=== PATIENT | male | born 1950 | race Caucasian/White ===

== ENCOUNTER 2020-01-15 10:50 | Inpatient (IN) ==
[~2020-01-15 10:50] MED LIST: ZEMURON 50 MG VIAL ONE
[2020-01-15] MEDS ORDERED: NS 1000 ML 1,000 ML ONE (11:17)
[2020-01-15] MEDS ORDERED: ASCORBIC ACID INJ MULTI-DOSE VIAL IM SCH (11:30)
[2020-01-15 11:56] LABS: ABG BASE EXCESS -0.4 mmol/L (-2.0-2.0); ABG HCO3 22.3 mmol/L (22-26)
--- NOTE | 2020-01-15 12:22 | RAD ---
HISTORYShortness of breath. Positive COVID.STUDYCHEST, 1 VIEWCOMPARISONNoneFINDINGSThe trachea is midline. The cardiac silhouette is enlarged. There is prominence of pulmonary interstitial markings in both lungs. There may be a slight lower lobe and peripheral predominance. There is no evidence of consolidation, significant effusion or pneumothorax. The bony thorax is unremarkable.IMPRESSION1. Prominence of pulmonary interstitial markings in both lungs as described.2. Cardiomegaly.Electronically signed by: DG NICHOLAS (Jan 15, 2020 12:21:08)
[2020-01-15 12:24] LABS: BASOPHILS # (AUTO) 0.3 X10^3/uL (0.0-0.1); BASOPHILS % (AUTO) 4.6 % (0.2-1.0); EOSINOPHILS % (AUTO) 0.1 % (0.9-2.9); HEMOGLOBIN 16.6 g/dL (13.5-18.0); LYMPHOCYTES # (AUTO) 0.5 X10^3/uL (1.3-2.9); LYMPHOCYTES % (AUTO) 8.5 % (21.0-51.0); MEAN CORPUSCULAR HEMOGLOBIN 31.5 pg (27.0-34.0); MEAN CORPUSCULAR HGB CONC 35.4 g/dL (33.0-35.0); MEAN CORPUSCULAR VOLUME 89.2 fL (80.0-100.0); MEAN PLATELET VOLUME 7.8 fL (7.4-11.0); MONOCYTES # (AUTO) 0.3 x10^3/uL (0.3-0.8); MONOCYTES % (AUTO) 4.4 % (0.0-13.0); NEUTROPHILS # (AUTO) 4.9 x10^3/uL (2.2-4.8); NEUTROPHILS % (AUTO) 82.4 % (42.0-75.0); PLATELET COUNT 172 X10^3/uL (150.0-450.0); RED BLOOD COUNT 5.27 X10^6/uL (4.7-6.0); RED CELL DISTRIBUTION WIDTH 13.7 % (11.6-16.5); WHITE BLOOD COUNT 5.9 X10^3/uL (3.6-10.0)
[2020-01-15 12:36] LABS: ALBUMIN 2.6 g/dL (3.4-5.0); CALCIUM 8.7 mg/dL (8.5-10.1); CARBON DIOXIDE 24.4 mmol/L (21-32); COR CA(FOR HYPOALB) 9.8 mg/dL (8.5-10.1); CREATININE 1.48 mg/dL (0.70-1.30)
[2020-01-15] MEDS ORDERED: K-RIDER 10 MEQ/NS 100 ML 10 MEQ/100 ML BAG IV PRN (12:49)
[2020-01-15] MEDS ORDERED: POTASSIUM CHL 40 MEQ/NS 0.45% 500 ML IV PRN (12:49)
[2020-01-15] MEDS ORDERED: MICRO K EXTEN CAP 10 MEQ PO PRN (12:49)
[2020-01-15] MEDS ORDERED: KLOR-CON PO PRN (12:49)
[2020-01-15] MEDS ORDERED: POTASSIUM CHL 60 MEQ/NS 0.45% 500 ML IV PRN (12:49)
[2020-01-15] MEDS ORDERED: POTASSIUM CHLORIDE LIQ 20 MEQ UDC PO PRN (12:49)
[2020-01-15] MEDS ORDERED: NORCO 5/325 MG TAB ONE (13:42)
[2020-01-15] MEDS ORDERED: CORTEF ONE ×3 (13:48→19:23)
[2020-01-15 13:53] VITALS: BMI 28.8
[2020-01-15] MEDS: THIAMINE HCL INJ IM SCH ×2 (13:54→21:07)
[2020-01-15] MEDS: NS 1000 ML 1,000 ML IV SCH (13:54)
[2020-01-15] MEDS: K-DUR TAB 20 MEQ PO PRN (13:55)
[2020-01-15] MEDS: CORTEF PO SCH ×3 (13:56→21:06)
[2020-01-15] MEDS: PLAQUENIL PO SCH ×2 (13:56→21:08)
[2020-01-15] MEDS: VITAMIN D (1.25MG) PO SCH (13:57)
[2020-01-15] MEDS: ZINC SULFATE PO SCH ×2 (13:57→21:07)
[2020-01-15] MEDS: VITAMIN A PO SCH ×3 (13:58→21:06)
[2020-01-15] MEDS: NS 100 ML IV 100 ML with ASCORBIC ACID INJ MULTI-DOSE VIAL 1,500 MG IV SCH ×6 (13:59→21:06)
[2020-01-15] MEDS: NORCO 5/325 MG TAB PO PRN (14:00)
[2020-01-15] MEDS ORDERED: MAGNESIUM SULFATE 1 GRAM/100 mL PREMIX 1 GM/100 ML BAG IV PRN (15:03)
[2020-01-15] MEDS: LOVENOX INJ 40 MG SYR SC SCH (17:15)
[2020-01-15] MEDS ORDERED: NS 500 ML IV 500 ML IV ONE (21:25)
[2020-01-16] MEDS: VITAMIN A PO SCH ×4 (04:00→22:46)
[2020-01-16] MEDS: NS 100 ML IV 100 ML with ASCORBIC ACID INJ MULTI-DOSE VIAL 1,500 MG IV SCH ×8 (04:00→20:07)
[2020-01-16] MEDS: PLAQUENIL PO SCH ×3 (05:30→22:47)
[2020-01-16 05:31] LABS: ALANINE AMINOTRANSFERASE 53 Units/L (12-78); ALBUMIN 2.5 g/dL (3.4-5.0); ALKALINE PHOSPHATASE 73 Units/L (46-116); ASPARTATE AMINO TRANSFERASE 94 Units/L (15-37); BLOOD UREA NITROGEN 42 mg/dL (7-18); CALCIUM 8.7 mg/dL (8.5-10.1); CARBON DIOXIDE 23.1 mmol/L (21-32); CHLORIDE 101 mmol/L (98-107); COR CA(FOR HYPOALB) 9.9 mg/dL (8.5-10.1); COR NA(FOR HYPERGLY) 137 mmol/L (136-145); CREATININE 1.18 mg/dL (0.70-1.30); SODIUM 136 mmol/L (136-145); eGFR NON BLACK RACES > 60 (>60)
[2020-01-16 05:42] LABS: BASOPHILS # (AUTO) 0.1 X10^3/uL (0.0-0.1); BASOPHILS % (AUTO) 1.1 % (0.2-1.0); EOSINOPHILS % (AUTO) 0.1 % (0.9-2.9); HEMATOCRIT 48.4 % (42.0-54.0); LYMPHOCYTES # (AUTO) 1.3 X10^3/uL (1.3-2.9); MEAN CORPUSCULAR HEMOGLOBIN 31.8 pg (27.0-34.0); MEAN CORPUSCULAR HGB CONC 35.2 g/dL (33.0-35.0); MEAN CORPUSCULAR VOLUME 90.4 fL (80.0-100.0); MEAN PLATELET VOLUME 8.7 fL (7.4-11.0); MONOCYTES # (AUTO) 0.6 x10^3/uL (0.3-0.8); MONOCYTES % (AUTO) 6.3 % (0.0-13.0); NEUTROPHILS # (AUTO) 6.8 x10^3/uL (2.2-4.8); NEUTROPHILS % (AUTO) 77.5 % (42.0-75.0); PLATELET COUNT 163 X10^3/uL (150.0-450.0); RED BLOOD COUNT 5.35 X10^6/uL (4.7-6.0); RED CELL DISTRIBUTION WIDTH 14.2 % (11.6-16.5); WHITE BLOOD COUNT 8.8 X10^3/uL (3.6-10.0)
[2020-01-16] MEDS: NORCO 5/325 MG TAB PO PRN ×2 (05:45→11:16)
[2020-01-16 06:03] LABS: PLATELET MORPHOLOGY COMMENT NORMAL (NORMAL)
[2020-01-16] MEDS ORDERED: CORTEF ONE ×3 (08:20→20:05)
[2020-01-16] MEDS: CORTEF PO SCH ×4 (08:25→20:09)
[2020-01-16] MEDS: LOVENOX INJ 40 MG SYR SC SCH (08:25)
[2020-01-16] MEDS: THIAMINE HCL INJ IM SCH ×2 (08:26→20:11)
[2020-01-16] MEDS: VITAMIN D (1.25MG) PO SCH (08:27)
[2020-01-16] MEDS: ZINC SULFATE PO SCH ×2 (08:28→20:10)
[2020-01-16] MEDS ORDERED: BISOPROLOL HYDROCHLOROTHIAZIDE PO SCH (10:15)
[2020-01-16] MEDS ORDERED: ZESTRIL TAB 20 MG ONE (10:44)
[2020-01-16] MEDS ORDERED: ZEBETA TAB 5 MG PO SCH (11:00)
[2020-01-16] MEDS ORDERED: ZESTRIL TAB 20 MG PO SCH (11:00)
[2020-01-16] MEDS ORDERED: ZIAC 5/6.25 MG PO SCH (11:00)
[2020-01-16] MEDS: ARIMIDEX PO SCH (11:10)
[2020-01-16] MEDS: ACTOS PO SCH (11:13)
[2020-01-16] MEDS: GLUCOPHAGE XR 24-HR PO SCH ×2 (11:15→20:09)
[2020-01-16] MEDS: NS 1000 ML 1,000 ML IV SCH ×2 (11:16→16:43)
[2020-01-16] MEDS: K-DUR TAB 20 MEQ PO PRN (11:18)
[2020-01-16 12:05] LABS: ABG BASE EXCESS -0.6 mmol/L (-2.0-2.0); ABG HCO3 23.1 mmol/L (22-26)
[2020-01-16] MEDS ORDERED: DIPRIVAN PREMIX 1 GRAM IV 1,000 MG/100 ML VIAL ONE (12:09)
[2020-01-16 12:55] LABS: BILIRUBIN,URINE NEGATIVE (NEGATIVE); BLOOD/HEMOGLOBIN,URINE 3+ (NEGATIVE); GLUCOSE, URINE NEGATIVE (NEGATIVE); KETONES,URINE 1+ (NEGATIVE); LEUKOCYTE ESTERASE ,URINE NEGATIVE (NEGATIVE); NITRITES,URINE NEGATIVE (NEGATIVE); PROTEIN,URINE 4+ (NEGATIVE); UROBILINOGEN,URINE NORMAL (NORMAL)
[2020-01-16 13:01] LABS: APPEARANCE,URINE HAZY (CLEAR); BACTERIA,URINE TRACE /HPF (NEGATIVE); COLOR,URINE YELLOW (YELLOW); MUCUS,URINE FEW /HPF (NEGATIVE); SQUAMOUS EPITHELIAL CELL,UR RARE /HPF (NEGATIVE)
--- NOTE | 2020-01-16 13:22 | DR.UPDATE ---
H&P Update History and Physical Update: History and Physical reviewed and patient examined. Changes noted: NO Yes with the following:h&p reviewed. will intubate for covid 19 H&P Reviewed: Yes Patient was examined?: Yes Procedures (ALL) - Central Line Placement PCM.CLCO: written consent Time out performed: Yes Patient placed pm monitor/pulse ox: Yes MD prep: mask, gown, gloves, other Centrial line prep: chlorhexidine scrub Local anesthsia used: lidocane 1% Ultrasound used for placement: Yes (right ij easily id'd) Central line lumen ininserted: triple Post procedure: sutured in place, good blood return, all ports aspirated, flushed,capped, sterile dressing applied Post procedure xray: tip oc catheter in good position, no pneumothorax seen Patient tolerated procedure: Yes Complications: none - Intubation Time out performed: Yes Sedative: other (propofol 170mg) paralytic: succinylchline (120mg) Laryngoscope: fiber optic video scope (glidescope 3. ) ET tube size: 8 Tube secured depth: 22 teeth Tube secured location: teeth Tube placement confirmation: visualized tube passing through cords, equal breath sounds bilaterally, no breath sounds over epigastrium, comfirmation by capnometer Patient tolerated procedure: Yes Intubation complications: none
--- NOTE | 2020-01-16 13:55 | RAD ---
HISTORYET TUBE PLACEMENT, CENTRAL LINE PLACEMENT + COVID-19STUDYCHEST, 1 VIEWCOMPARISONChest x-ray dated January 15, 2020.FINDINGSRight IJ central venous catheter whose tip overlies the cavoatrial junction. There is an endotracheal tube whose tip is at the thoracic inlet. The cardiac silhouette is stably enlarged without overt signs of failure. Chronic emphysematous and interstitial lung changes. Diffuse patchy bilateral airspace disease. No significant pleural effusion or pneumothorax. The bony thorax is unremarkable.IMPRESSION1. Tubes and lines as above.2. Worsening lung aeration.Electronically signed by: AMENA ZUNIGA (Jan 16, 2020 13:54:13)
[2020-01-16] MEDS: DIPRIVAN PREMIX 1 GRAM IV 1,000 MG/100 ML VIAL IV PRN ×2 (13:57→16:41)
[2020-01-16 14:37] LABS: ABG BASE EXCESS -1.5 mmol/L (-2.0-2.0); ABG HCO3 23.7 mmol/L (22-26)
[2020-01-16] MEDS ORDERED: LEVOPHED INJ 8 MG in D5W 250 ML IV 242 ML IV PRN (15:10)
--- NOTE | 2020-01-16 16:05 | RAD ---
HISTORYNG TUBE PLACEMENT; PT IN PRONE POSITIONSTUDYKUBCOMPARISONNoneFINDINGSNasogastric tube tip and side hole are within the region of the fundus of the stomach. Patient is in prone position.IMPRESSIONNasogastric tube tip and side hole are within the region of the fundus of the stomach.Electronically signed by: Puma Stewart (Jan 15 16:04:06)
[2020-01-16] MEDS: LACRI-LUBE S.O.P. AFFEYE SCH ×2 (16:23→20:09)
[2020-01-16 18:02] LABS: ABG BASE EXCESS -0.4 mmol/L (-2.0-2.0); ABG HCO3 24.8 mmol/L (22-26)
[2020-01-16 18:03] LABS: ABG ALLEN TEST POS
[2020-01-16] MEDS: FLOMAX PO SCH (20:09)
[2020-01-16] MEDS: SINGULAIR TAB 10 MG PO SCH (20:11)
[2020-01-16] MEDS: VERSED 100 MG in NS 100 ML IV 80 ML IV PRN (20:45)
[2020-01-17] MEDS: NS 100 ML IV 100 ML with ASCORBIC ACID INJ MULTI-DOSE VIAL 1,500 MG IV SCH ×8 (02:30→20:17)
[2020-01-17] MEDS ORDERED: NORCURON INJ 10 MG VIAL 50 MG in NS 50 ML IV 50 ML IV PRN (02:47)
[2020-01-17] MEDS ORDERED: NORCURON INJ 10 MG VIAL IVP ONE (02:47)
[2020-01-17] MEDS ORDERED: NORCURON INJ 10 MG VIAL ONE (03:15)
[2020-01-17] MEDS ORDERED: NS 50 ML IV 50 ML IV ONE (03:18)
[2020-01-17] MEDS: VITAMIN A PO SCH ×2 (04:14→14:39)
[2020-01-17] MEDS ORDERED: VERSED ONE ×2 (04:54→04:57)
[2020-01-17] MEDS ORDERED: NS 100 ML IV 100 ML IV ONE (04:55)
[2020-01-17 04:58] LABS: BASOPHILS % (AUTO) 0.3 % (0.2-1.0); EOSINOPHILS % (AUTO) 0.3 % (0.9-2.9); HEMATOCRIT 45.5 % (42.0-54.0); HEMOGLOBIN 15.6 g/dL (13.5-18.0); LYMPHOCYTES # (AUTO) 0.9 X10^3/uL (1.3-2.9); MEAN CORPUSCULAR HEMOGLOBIN 31.4 pg (27.0-34.0); MEAN CORPUSCULAR HGB CONC 34.3 g/dL (33.0-35.0); MEAN CORPUSCULAR VOLUME 91.5 fL (80.0-100.0); MONOCYTES # (AUTO) 0.4 x10^3/uL (0.3-0.8); MONOCYTES % (AUTO) 4.3 % (0.0-13.0); NEUTROPHILS # (AUTO) 7.5 x10^3/uL (2.2-4.8); NEUTROPHILS % (AUTO) 85.1 % (42.0-75.0); PLATELET COUNT 237 X10^3/uL (150.0-450.0); RED BLOOD COUNT 4.98 X10^6/uL (4.7-6.0); RED CELL DISTRIBUTION WIDTH 14.1 % (11.6-16.5); WHITE BLOOD COUNT 8.9 X10^3/uL (3.6-10.0)
[2020-01-17] MEDS: VERSED 100 MG in NS 100 ML IV 80 ML IV PRN ×2 (05:05→19:24)
[2020-01-17 05:07] LABS: ALANINE AMINOTRANSFERASE 50 Units/L (12-78); ALBUMIN 2.3 g/dL (3.4-5.0); ALKALINE PHOSPHATASE 81 Units/L (46-116); ASPARTATE AMINO TRANSFERASE 71 Units/L (15-37); BLOOD UREA NITROGEN 32 mg/dL (7-18); CALCIUM 8.2 mg/dL (8.5-10.1); CHLORIDE 102 mmol/L (98-107); COR CA(FOR HYPOALB) 9.6 mg/dL (8.5-10.1); COR NA(FOR HYPERGLY) 141 mmol/L (136-145); CREATININE 0.95 mg/dL (0.70-1.30); SODIUM 140 mmol/L (136-145); eGFR NON BLACK RACES > 60 (>60)
[2020-01-17] MEDS: PLAQUENIL PO SCH ×3 (05:22→21:51)
[2020-01-17 06:13] LABS: ABG BASE EXCESS 1.4 mmol/L (-2.0-2.0)
[2020-01-17 06:14] LABS: ABG ALLEN TEST POS; ABG HCO3 30.3 mmol/L (22-26); FRACTIONATED INSPIRED OXYGEN 80
[2020-01-17] MEDS ORDERED: PHARMACY CONSULT - TOBRAMYCIN XX SCH (07:00)
[2020-01-17] MEDS ORDERED: TOBRAMYCIN SULFATE 80 MG in NS 100 ML IV 100 ML IV ONE (08:00)
[2020-01-17] MEDS ORDERED: ZITHROMAX INJ 500 MG VIAL 500 MG in NS 250 ML IV 250 ML IV SCH (09:00)
[2020-01-17] MEDS: LACRI-LUBE S.O.P. AFFEYE SCH ×2 (09:01→20:17)
[2020-01-17] MEDS: ACTOS PO SCH (09:02)
[2020-01-17] MEDS: LOVENOX INJ 40 MG SYR SC SCH (09:03)
[2020-01-17] MEDS: ZINC SULFATE PO SCH ×2 (09:03→20:15)
[2020-01-17] MEDS: VSL#3 PO SCH (09:03)
[2020-01-17] MEDS: GLUCOPHAGE XR 24-HR PO SCH ×2 (09:10→20:41)
[2020-01-17] MEDS ORDERED: CORTEF ONE ×4 (09:15→20:16)
[2020-01-17] MEDS ORDERED: LOPRESSOR INJ 5 MG AMP IVP PRN (09:35)
[2020-01-17] MEDS: ARIMIDEX PO SCH (10:10)
[2020-01-17] MEDS: THIAMINE HCL INJ IM SCH ×2 (10:10→20:42)
[2020-01-17] MEDS: ROCEPHIN 1 GRAM IV PREMIX 1 G/50 ML IV.SOLN. IV SCH (10:10)
[2020-01-17] MEDS: CORTEF PO SCH ×4 (10:11→20:41)
[2020-01-17] MEDS: ZEMURON IV SCH (11:12)
[2020-01-17] MEDS: NS IV SCH (11:12)
[2020-01-17] MEDS ORDERED: NS IV SCH (12:00)
[2020-01-17] MEDS ORDERED: SPIKE MINIBAG IV SCH (12:00)
[2020-01-17] MEDS ORDERED: AZACTAM IV SCH (12:00)
[2020-01-17] MEDS: NS 1000 ML 1,000 ML IV SCH (14:37)
[2020-01-17] MEDS: VITAMIN D3 25 mcg (1,000 UNITS) PO SCH (15:01)
[2020-01-17] MEDS: TOBRAMYCIN SULFATE 80 MG in NS 100 ML IV 98 ML IV SCH ×2 (17:09→21:51)
[2020-01-17] MEDS ORDERED: PHARMACY COMMENT IV NR (20:00)
[2020-01-17] MEDS: SINGULAIR TAB 10 MG PO SCH (20:15)
[2020-01-17] MEDS: FLOMAX PO SCH (20:15)
[2020-01-17 20:48] LABS: BLOOD UREA NITROGEN 26 mg/dL (7-18); CALCIUM 8.1 mg/dL (8.5-10.1); CARBON DIOXIDE 32.4 mmol/L (21-32); CHLORIDE 105 mmol/L (98-107); COR NA(FOR HYPERGLY) 144 mmol/L (136-145); SODIUM 142 mmol/L (136-145); eGFR NON BLACK RACES > 60 (>60)
[2020-01-18] MEDS: NS IV SCH ×2 (01:29→17:30)
[2020-01-18] MEDS: ZEMURON IV SCH ×2 (01:29→17:30)
[2020-01-18] MEDS: NS 100 ML IV 100 ML with ASCORBIC ACID INJ MULTI-DOSE VIAL 1,500 MG IV SCH ×6 (02:55→16:00)
[2020-01-18 04:55] LABS: ABG BASE EXCESS 6.3 mmol/L (-2.0-2.0)
[2020-01-18 04:56] LABS: ABG HCO3 34.7 mmol/L (22-26); FRACTIONATED INSPIRED OXYGEN 55
[2020-01-18 04:57] LABS: ABG ALLEN TEST POS
[2020-01-18] MEDS ORDERED: PHARMACY COMMENT IV NR (05:00)
[2020-01-18] MEDS: PLAQUENIL PO SCH ×3 (05:30→22:00)
--- NOTE | 2020-01-18 05:46 | RAD ---
STUDY: CHEST, 1 VIEWCOMPARISON: 01/16/2020HISTORY: ARDSFINDINGS:Tip of endotracheal tube is 55 mm above the andrea. Right IJ central line and enteric tube are stable. Cardiomediastinal contour is stable. Diffuse alveolar airspace disease in the right and left lung is unchanged from the prior study compatible with patient ARDS. No pleural effusion or gross pneumothorax is seen.IMPRESSION:There is no significant change from prior studyElectronically signed by: Benjy Merrill (Jan 18, 2020 05:45:43)
[2020-01-18 06:02] LABS: BASOPHILS % (AUTO) 0.2 % (0.2-1.0); HEMATOCRIT 42.2 % (42.0-54.0); HEMOGLOBIN 14.5 g/dL (13.5-18.0); LYMPHOCYTES # (AUTO) 0.4 X10^3/uL (1.3-2.9); MEAN CORPUSCULAR HEMOGLOBIN 31.8 pg (27.0-34.0); MEAN CORPUSCULAR HGB CONC 34.4 g/dL (33.0-35.0); MEAN CORPUSCULAR VOLUME 92.4 fL (80.0-100.0); MEAN PLATELET VOLUME 7.1 fL (7.4-11.0); MONOCYTES # (AUTO) 0.4 x10^3/uL (0.3-0.8); NEUTROPHILS # (AUTO) 7.8 x10^3/uL (2.2-4.8); NEUTROPHILS % (AUTO) 89.8 % (42.0-75.0); PLATELET COUNT 242 X10^3/uL (150.0-450.0); RED BLOOD COUNT 4.57 X10^6/uL (4.7-6.0); RED CELL DISTRIBUTION WIDTH 14.2 % (11.6-16.5); WHITE BLOOD COUNT 8.7 X10^3/uL (3.6-10.0)
[2020-01-18 06:14] LABS: ALANINE AMINOTRANSFERASE 33 Units/L (12-78); ALBUMIN 1.8 g/dL (3.4-5.0); ALKALINE PHOSPHATASE 66 Units/L (46-116); ASPARTATE AMINO TRANSFERASE 37 Units/L (15-37); BLOOD UREA NITROGEN 26 mg/dL (7-18); CALCIUM 8.2 mg/dL (8.5-10.1); CARBON DIOXIDE 32.6 mmol/L (21-32); CHLORIDE 106 mmol/L (98-107); COR NA(FOR HYPERGLY) 144 mmol/L (136-145); SODIUM 143 mmol/L (136-145); TOTAL PROTEIN 6.5 g/dL (6.4-8.2); eGFR NON BLACK RACES > 60 (>60)
[2020-01-18] MEDS: TOBRAMYCIN SULFATE 80 MG in NS 100 ML IV 98 ML IV SCH ×3 (06:16→22:00)
[2020-01-18] MEDS: VERSED 100 MG in NS 100 ML IV 80 ML IV PRN ×2 (07:30→17:30)
[2020-01-18] MEDS: ROCEPHIN 1 GRAM IV PREMIX 1 G/50 ML IV.SOLN. IV SCH (09:00)
[2020-01-18] MEDS: ZINC SULFATE PO SCH ×2 (10:00→21:00)
[2020-01-18] MEDS: VSL#3 PO SCH (10:00)
[2020-01-18] MEDS: LACRI-LUBE S.O.P. AFFEYE SCH ×2 (10:00→21:00)
[2020-01-18] MEDS: LOVENOX INJ 40 MG SYR SC SCH (10:00)
[2020-01-18] MEDS: VITAMIN D3 25 mcg (1,000 UNITS) PO SCH (10:00)
[2020-01-18] MEDS: ARIMIDEX PO SCH (10:00)
[2020-01-18] MEDS: VITAMIN A PO SCH (10:00)
[2020-01-18] MEDS: ACTOS PO SCH (10:00)
[2020-01-18] MEDS: GLUCOPHAGE XR 24-HR PO SCH ×2 (10:00→22:19)
[2020-01-18] MEDS: CORTEF PO SCH ×4 (10:00→21:00)
[2020-01-18] MEDS: THIAMINE HCL INJ IM SCH ×2 (10:00→21:00)
[2020-01-18] MEDS ORDERED: LOPRESSOR INJ 5 MG AMP IVP ONE ×4 (10:30→16:57)
[2020-01-18] MEDS: NS 1000 ML 1,000 ML IV SCH (12:02)
[2020-01-18] MEDS ORDERED: LOPRESSOR INJ 5 MG AMP IVP PRN (12:09)
[2020-01-18] MEDS ORDERED: NS 100 ML IV 100 ML IV ONE (16:05)
[2020-01-18] MEDS: FLOMAX PO SCH (21:00)
[2020-01-18] MEDS: SINGULAIR TAB 10 MG PO SCH (21:00)
--- NOTE | 2020-01-18 21:58 | DR.H&P ---
H&P History & Physical for Day of: H&P Date: 01/15/20 Chief Complaint Chief Complaint: Diagnosed with COVID-19 ON 01/09 after a few days of fever, and headache. Pt has had increasing dyspnea and has been admitted to the hospital for further treatment. Started on plaquenil 1-2 days before admission Allergies Allergies Allergy/AdvReac Type Severity Reaction Status Date / Time Penicillins Allergy Verified 01/15/20 11:30 History of Present Illness History of Present Illness: Pt has been sick for about a week, and has been worsening to the point of dyspnea at rest. Past Medical History Past Medical History: Hypertension Additional Medical History: Diabetes, BPH Past Surgical History Surgical History: Unknown Family History Family Medical History: Diabetes Mellitus, Cancer and [place] Social History Does patient currently use any type of tobacco product: No Have you used tobacco products in the last 12 months: No Alcohol Use: None Drug Use: None Medications Home Medications: Penicillins Allergy (Verified 01/15/20 11:30) CONTINUE taking the following medications anastrozole 1 mg PO DAILY 01/15/20 [History] aspirin [Aspirin Low Dose] 10 mg PO DAILY 01/15/20 [History] bisoprolol-hydrochlorothiazide 1 tab PO DAILY 01/15/20 [History] fluticasone furoate-vilanterol [Breo Ellipta] 1 inh INHALATION DAILY 01/15/20 [History] hydroxychloroquine 200 mg PO DAILY 01/15/20 [History] lisinopril 20 mg PO DAILY 01/15/20 [History] metformin 500 mg PO BID 01/15/20 [History] montelukast 10 mg PO HS 01/15/20 [History] pantoprazole 40 mg PO DAILY 01/15/20 [History] pioglitazone 30 mg PO DAILY 01/15/20 [History] tamsulosin 0.4 mg PO HS 01/15/20 [History] Labs Result Diagrams: 01/18/20 05:16 01/18/20 05:16 Labs: 01/16/20 12:35 Urine,[place] Urine Culture - Final Laboratory WBC 8.7 X10^3/uL (3.6-10.0) 01/18/20 05:16 RBC 4.57 X10^6/uL (4.7-6.0) L 01/18/20 05:16 Hgb 14.5 g/dL (13.5-18.0) 01/18/20 05:16 Hct 42.2 % (42.0-54.0) 01/18/20 05:16 MCV 92.4 fL (80.0-100.0) 01/18/20 05:16 MCH 31.8 pg (27.0-34.0) 01/18/20 05:16 MCHC 34.4 g/dL (33.0-35.0) 01/18/20 05:16 RDW 14.2 % (11.6-16.5) 01/18/20 05:16 Plt Count 242 X10^3/uL (150.0-450.0) 01/18/20 05:16 Plt Count Comment Adequate (ADEQUATE) 01/16/20 04:59 MPV 7.1 fL (7.4-11.0) L 01/18/20 05:16 Neut % (Auto) 89.8 % (42.0-75.0) H 01/18/20 05:16 Lymph % (Auto) 5.0 % (21.0-51.0) L 01/18/20 05:16 Alfalfa % (Auto) 5.0 % (0.0-13.0) 01/18/20 05:16 Eos % (Auto) 0.0 % (0.9-2.9) L 01/18/20 05:16 Baso % (Auto) 0.2 % (0.2-1.0) 01/18/20 05:16 Neut # (Auto) 7.8 x10^3/uL (2.2-4.8) H 01/18/20 05:16 Lymph # (Auto) 0.4 X10^3/uL (1.3-2.9) L 01/18/20 05:16 Alfalfa # (Auto) 0.4 x10^3/uL (0.3-0.8) 01/18/20 05:16 Eos # (Auto) 0.0 x10^3/uL (0.0-0.2) 01/18/20 05:16 Baso # (Auto) 0.0 X10^3/uL (0.0-0.1) 01/18/20 05:16 Absolute Nucleated RBC 0.1 /100WBC 01/18/20 05:16 Plt Clumps, EDTA Rare 01/16/20 04:59 Plt Morphology Comment Normal (NORMAL) 01/16/20 04:59 RBC Morphology Normal (NORMAL) 01/16/20 04:59 D-Dimer > 5000 ng/mL (0-400) H* 01/17/20 20:34 Sample Site Lr 01/18/20 04:37 ABG pH 7.310 (7.35-7.45) L 01/18/20 04:37 ABG pCO2 69.0 mmHg (35.0-45.0) H* 01/18/20 04:37 ABG pO2 80.0 mmHg (80.0-100.0) 01/18/20 04:37 ABG HCO3 34.7 mmol/L (22-26) H* 01/18/20 04:37 ABG O2 Saturation 95.0 % (90-100) 01/18/20 04:37 ABG Base Excess 6.3 mmol/L (-2.0-2.0) H 01/18/20 04:37 Jerry Test Pos 01/18/20 04:37 A-a Gradient 226.0 mmHg 01/18/20 04:37 FiO2 55 01/18/20 04:37 Blood Gas Comments Carlo well sw 01/18/20 04:37 Sodium 143 mmol/L (136-145) 01/18/20 05:16 Corrected Sodium 144 mmol/L (136-145) 01/18/20 05:16 Potassium 4.8 mmol/L (3.5-5.1) 01/18/20 05:16 Chloride 106 mmol/L (98-107) 01/18/20 05:16 Carbon Dioxide 32.6 mmol/L (21-32) H 01/18/20 05:16 BUN 26 mg/dL (7-18) H 01/18/20 05:16 Creatinine 1.00 mg/dL (0.70-1.30) 01/18/20 05:16 Est GFR (MDRD) Af Amer > 60 (>60) 01/18/20 05:16 Est GFR (MDRD) Non-Af > 60 (>60) 01/18/20 05:16 Glucose 148 mg/dL (65-99) H 01/18/20 05:16 POC Glucose (mg/dL) 128 mg/dL (65-99) H 01/16/20 11:28 Calcium 8.2 mg/dL (8.5-10.1) L 01/18/20 05:16 Corrected Calcium 10.0 mg/dL (8.5-10.1) 01/18/20 05:16 Magnesium 1.7 mg/dL (1.7-2.9) 01/15/20 12:14 Total Bilirubin 0.40 mg/dL (0.2-1.0) 01/18/20 05:16 AST 37 Units/L (15-37) 01/18/20 05:16 ALT 33 Units/L (12-78) 01/18/20 05:16 Alkaline Phosphatase 66 Units/L (46-116) 01/18/20 05:16 Total Protein 6.5 g/dL (6.4-8.2) 01/18/20 05:16 Albumin 1.8 g/dL (3.4-5.0) L 01/18/20 05:16 Globulin 4.7 g/dL (2.5-4.5) H 01/18/20 05:16 Albumin/Globulin Ratio 0.4 Ratio (1.1-2.1) L 01/18/20 05:16 Vit D 1,25-Dihydroxy Cancelled 01/17/20 04:30 Specimen Type Catherized urine 01/16/20 12:35 Urine Color Yellow (YELLOW) 01/16/20 12:35 Urine Appearance Hazy (CLEAR) 01/16/20 12:35 Urine pH 6.0 (5.0 - 8.0) 01/16/20 12:35 Ur Specific [place] 1.020 (1.000-1.030) 01/16/20 12:35 Urine Protein 4+ (NEGATIVE) 01/16/20 12:35 Urine Glucose (UA) Negative (NEGATIVE) 01/16/20 12:35 Urine Ketones 1+ (NEGATIVE) 01/16/20 12:35 Urine Occult Blood 3+ (NEGATIVE) 01/16/20 12:35 Urine Nitrite Negative (NEGATIVE) 01/16/20 12:35 Urine Bilirubin Negative (NEGATIVE) 01/16/20 12:35 Urine Urobilinogen Normal (NORMAL) 01/16/20 12:35 Ur Leukocyte Esterase Negative (NEGATIVE) 01/16/20 12:35 Urine RBC 3-5 /HPF (0-3) A 01/16/20 12:35 Urine WBC 3-5 /HPF (0-5) 01/16/20 12:35 Ur Squamous Epith Cells Rare /HPF (NEGATIVE) 01/16/20 12:35 Urine Bacteria Trace /HPF (NEGATIVE) 01/16/20 12:35 Urine Mucus Few /HPF (NEGATIVE) 01/16/20 12:35 Ur Culture Indicated? Yes/culture set up 01/16/20 12:35 Random Tobramycin 0.9 ug/mL 01/18/20 05:16 Review of Systems Constitutional: Fever, Chills, Sweats, Weakness and Malaise Respiratory: Cough, Shortness of Breath and SOB with Excertion Gastrointestinal: No Symptoms Reported Genitourinary: Frequency Musculoskeletal: Other (myalgia) Skin: No Symptoms Reported Neurological: No Symptoms Reported Physical Exam Vital Signs: Temperature 100 F Pulse Rate [Brachial] 88 Pulse Rate 69 Respiratory Rate 27 Blood Pressure [Right Arm] 162/76 Blood Pressure [Left Arm] 156/70 Blood Pressure 170/77 O2 Sat by Pulse Oximetry 95 Oriented: Normal Eyes: Normal Ear: Normal Nose: Normal Throat: Normal Respiratory: Clear Throughout Cardiovascular: Normal : Normal Auscultation: Bowel Sounds: Normal Palpation: Normal Skin: Normal Musculoskeletal: Normal Psychiatric: Normal Mood Description: Anxious Affect: Quiet Speech Pattern: Clear Assessment/Plan (1) Viral pneumonia: Narrative Support Text: viral pneumonia protocol initiated, Status: Acute Plan: Pt will be monitored carefully for deterioration
[2020-01-18] MEDS: VITAMIN C NG SCH (22:25)
[2020-01-19] MEDS: VERSED 100 MG in NS 100 ML IV 80 ML IV PRN ×2 (03:36→14:13)
[2020-01-19 04:40] LABS: ABG BASE EXCESS 7.4 mmol/L (-2.0-2.0)
[2020-01-19 04:41] LABS: ABG ALLEN TEST POS; ABG HCO3 34.3 mmol/L (22-26); FRACTIONATED INSPIRED OXYGEN 70
[2020-01-19] MEDS: VITAMIN C NG SCH ×4 (05:15→21:00)
[2020-01-19] MEDS: PLAQUENIL PO SCH ×3 (05:15→21:57)
[2020-01-19] MEDS ORDERED: PHARMACY COMMENT IV NR ×2 (05:30→08:00)
[2020-01-19 06:32] LABS: BASOPHILS % (AUTO) 0.1 % (0.2-1.0); EOSINOPHILS % (AUTO) 0.4 % (0.9-2.9); HEMATOCRIT 39.5 % (42.0-54.0); HEMOGLOBIN 13.4 g/dL (13.5-18.0); LYMPHOCYTES # (AUTO) 0.6 X10^3/uL (1.3-2.9); LYMPHOCYTES % (AUTO) 7.1 % (21.0-51.0); MEAN CORPUSCULAR HEMOGLOBIN 31.6 pg (27.0-34.0); MEAN CORPUSCULAR VOLUME 93.1 fL (80.0-100.0); MEAN PLATELET VOLUME 7.9 fL (7.4-11.0); MONOCYTES # (AUTO) 0.4 x10^3/uL (0.3-0.8); MONOCYTES % (AUTO) 4.4 % (0.0-13.0); NEUTROPHILS # (AUTO) 7.6 x10^3/uL (2.2-4.8); PLATELET COUNT 231 X10^3/uL (150.0-450.0); RED BLOOD COUNT 4.24 X10^6/uL (4.7-6.0); RED CELL DISTRIBUTION WIDTH 14.1 % (11.6-16.5); WHITE BLOOD COUNT 8.7 X10^3/uL (3.6-10.0)
[2020-01-19 06:45] LABS: ALANINE AMINOTRANSFERASE 27 Units/L (12-78); ALBUMIN 1.5 g/dL (3.4-5.0); ALKALINE PHOSPHATASE 53 Units/L (46-116); ASPARTATE AMINO TRANSFERASE 29 Units/L (15-37); BLOOD UREA NITROGEN 40 mg/dL (7-18); CALCIUM 8.8 mg/dL (8.5-10.1); CARBON DIOXIDE 34.3 mmol/L (21-32); CHLORIDE 109 mmol/L (98-107); COR CA(FOR HYPOALB) 10.8 mg/dL (8.5-10.1); COR NA(FOR HYPERGLY) 146 mmol/L (136-145); CREATININE 0.99 mg/dL (0.70-1.30); SODIUM 145 mmol/L (136-145); TOTAL PROTEIN 6.2 g/dL (6.4-8.2); eGFR NON BLACK RACES > 60 (>60)
[2020-01-19 07:04] LABS: TOBRAMYCIN,TROUGH 1.1 ug/mL (0-2)
[2020-01-19] MEDS: TOBRAMYCIN SULFATE 80 MG in NS 100 ML IV 98 ML IV SCH ×3 (07:48→21:57)
[2020-01-19] MEDS: ACTOS PO SCH (08:19)
[2020-01-19] MEDS: ARIMIDEX PO SCH (08:20)
[2020-01-19] MEDS: GLUCOPHAGE XR 24-HR PO SCH (08:21)
[2020-01-19] MEDS: LACRI-LUBE S.O.P. AFFEYE SCH ×2 (08:22→21:47)
[2020-01-19] MEDS: LOVENOX INJ 40 MG SYR SC SCH (08:22)
[2020-01-19] MEDS: ROCEPHIN 1 GRAM IV PREMIX 1 G/50 ML IV.SOLN. IV SCH (08:27)
[2020-01-19] MEDS: THIAMINE HCL INJ IM SCH (08:27)
[2020-01-19] MEDS: CORTEF PO SCH ×5 (08:30→21:45)
[2020-01-19] MEDS: VITAMIN A PO SCH (08:30)
[2020-01-19] MEDS: VITAMIN D3 25 mcg (1,000 UNITS) PO SCH (08:33)
[2020-01-19] MEDS: VSL#3 PO SCH (08:34)
[2020-01-19] MEDS: ZINC SULFATE PO SCH ×2 (08:34→21:00)
[2020-01-19] MEDS: PROTONIX INJ 40 MG VIAL IVP SCH (10:47)
[2020-01-19] MEDS: NS 1000 ML 1,000 ML IV SCH (11:59)
[2020-01-19] MEDS ORDERED: NS 100 ML IV 100 ML IV ONE (13:39)
[2020-01-19] MEDS: NS IV SCH (17:06)
[2020-01-19] MEDS: ZEMURON IV SCH (17:06)
[2020-01-19] MEDS ORDERED: BUTT CREAM (COMPOUND) ONE (18:16)
[2020-01-19] MEDS ORDERED: BUTT CREAM (COMPOUND) TOP PRN (18:30)
[2020-01-19] MEDS ORDERED: GLUCOPHAGE ONE (19:49)
[2020-01-19] MEDS: SINGULAIR TAB 10 MG PO SCH (21:00)
[2020-01-19] MEDS: GLUCOPHAGE PO SCH (21:44)
[2020-01-19] MEDS: FLOMAX PO SCH (21:45)
[2020-01-19] MEDS: LOPRESSOR INJ 5 MG AMP IVP SCH (23:05)
[2020-01-20] MEDS: VERSED 100 MG in NS 100 ML IV 80 ML IV PRN ×3 (01:33→23:18)
[2020-01-20] MEDS: NS 1000 ML 1,000 ML IV SCH ×2 (03:13→13:09)
[2020-01-20] MEDS: VITAMIN C NG SCH ×4 (04:54→20:04)
[2020-01-20 05:10] LABS: ABG BASE EXCESS 8.8 mmol/L (-2.0-2.0)
[2020-01-20 05:13] LABS: ABG ALLEN TEST POS; ABG HCO3 35.7 mmol/L (22-26)
[2020-01-20] MEDS ORDERED: PHARMACY COMMENT IV NR ×2 (05:30→08:00)
[2020-01-20 06:07] LABS: BASOPHILS % (AUTO) 0.1 % (0.2-1.0); EOSINOPHILS # (AUTO) 0.2 x10^3/uL (0.0-0.2); EOSINOPHILS % (AUTO) 2.3 % (0.9-2.9); HEMATOCRIT 40.9 % (42.0-54.0); LYMPHOCYTES # (AUTO) 0.6 X10^3/uL (1.3-2.9); LYMPHOCYTES % (AUTO) 7.4 % (21.0-51.0); MEAN CORPUSCULAR HEMOGLOBIN 31.7 pg (27.0-34.0); MEAN CORPUSCULAR HGB CONC 34.3 g/dL (33.0-35.0); MEAN CORPUSCULAR VOLUME 92.3 fL (80.0-100.0); MEAN PLATELET VOLUME 7.2 fL (7.4-11.0); MONOCYTES # (AUTO) 0.5 x10^3/uL (0.3-0.8); MONOCYTES % (AUTO) 5.6 % (0.0-13.0); NEUTROPHILS # (AUTO) 7.1 x10^3/uL (2.2-4.8); NEUTROPHILS % (AUTO) 84.6 % (42.0-75.0); PLATELET COUNT 242 X10^3/uL (150.0-450.0); RED BLOOD COUNT 4.43 X10^6/uL (4.7-6.0); RED CELL DISTRIBUTION WIDTH 14.6 % (11.6-16.5); WHITE BLOOD COUNT 8.5 X10^3/uL (3.6-10.0)
[2020-01-20 06:11] LABS: CREATININE 0.8 mg/dL (0.70-1.30)
[2020-01-20] MEDS: PLAQUENIL PO SCH ×3 (06:17→21:17)
[2020-01-20] MEDS: LOPRESSOR INJ 5 MG AMP IVP SCH ×4 (06:19→21:17)
[2020-01-20 06:24] LABS: ALANINE AMINOTRANSFERASE 28 Units/L (12-78); ALBUMIN 1.5 g/dL (3.4-5.0); ALKALINE PHOSPHATASE 51 Units/L (46-116); ASPARTATE AMINO TRANSFERASE 30 Units/L (15-37); BLOOD UREA NITROGEN 46 mg/dL (7-18); CALCIUM 8.9 mg/dL (8.5-10.1); CHLORIDE 112 mmol/L (98-107); COR CA(FOR HYPOALB) 10.9 mg/dL (8.5-10.1); COR NA(FOR HYPERGLY) 149 mmol/L (136-145); SODIUM 148 mmol/L (136-145); TOTAL PROTEIN 6.6 g/dL (6.4-8.2); eGFR NON BLACK RACES > 60 (>60)
[2020-01-20] MEDS: TOBRAMYCIN SULFATE 80 MG in NS 100 ML IV 98 ML IV SCH ×3 (06:32→21:16)
[2020-01-20] MEDS ORDERED: GLUCOPHAGE ONE ×2 (07:49→19:24)
[2020-01-20] MEDS: ARIMIDEX PO SCH (09:06)
[2020-01-20] MEDS: CORTEF PO SCH ×4 (09:07→20:18)
[2020-01-20] MEDS: GLUCOPHAGE PO SCH ×2 (09:09→20:01)
[2020-01-20] MEDS: LACRI-LUBE S.O.P. AFFEYE SCH ×2 (09:10→20:02)
[2020-01-20] MEDS: ACTOS PO SCH (09:12)
[2020-01-20] MEDS: LOVENOX INJ 40 MG SYR SC SCH (09:12)
[2020-01-20] MEDS: PROTONIX INJ 40 MG VIAL IVP SCH (09:13)
[2020-01-20] MEDS: ROCEPHIN 1 GRAM IV PREMIX 1 G/50 ML IV.SOLN. IV SCH (09:13)
[2020-01-20] MEDS ORDERED: ZESTRIL TAB 20 MG ONE (09:14)
[2020-01-20] MEDS: VITAMIN A PO SCH (09:15)
[2020-01-20] MEDS: VITAMIN D3 25 mcg (1,000 UNITS) PO SCH (09:19)
[2020-01-20] MEDS: VSL#3 PO SCH (09:19)
[2020-01-20] MEDS: ZINC SULFATE PO SCH ×2 (09:20→20:02)
[2020-01-20] MEDS ORDERED: ZESTRIL TAB 20 MG PO SCH ×2 (10:00)
--- NOTE | 2020-01-20 14:22 | RAD ---
HISTORYFollow-up ARDS, COVID-19STUDYCHEST, 1 [id number]/04/2020FINDINGSPatient is rotated to the right. There is an endotracheal tube in good position. There is a right IJ line in good position. The heart is within normal limits in size. Bilateral interstitial and alveolar infiltrate are again identified and not significantly different from prior examination. No pleural effusions are identified. The bony thorax is unremarkable.IMPRESSIONNo significant change from the prior examinationElectronically signed by: SARAH KELLER (Jan 20, 2020 14:21:04)
[2020-01-20] MEDS ORDERED: NS 1/2 1000 ML IV 1,000 ML IV ONE (15:14)
[2020-01-20] MEDS: NS 1/2 1000 ML IV 1,000 ML IV SCH ×2 (15:16→21:17)
[2020-01-20] MEDS: NS IV SCH (15:53)
[2020-01-20] MEDS: ZEMURON IV SCH (15:53)
[2020-01-20] MEDS: FLOMAX PO SCH (20:01)
[2020-01-20] MEDS: SINGULAIR TAB 10 MG PO SCH (20:02)
[2020-01-20] MEDS ORDERED: CORTEF ONE (20:10)
[2020-01-21] MEDS ORDERED: ZESTRIL TAB 20 MG ONE ×3 (00:12→19:31)
[2020-01-21] MEDS: ZESTRIL TAB 20 MG PO SCH ×3 (00:23→20:01)
[2020-01-21] MEDS ORDERED: VERSED ONE (03:21)
[2020-01-21] MEDS: VITAMIN C NG SCH ×4 (03:26→20:03)
[2020-01-21] MEDS: LOPRESSOR INJ 5 MG AMP IVP SCH ×4 (03:27→21:57)
[2020-01-21] MEDS: TOBRAMYCIN SULFATE 80 MG in NS 100 ML IV 98 ML IV SCH (05:02)
[2020-01-21] MEDS: PLAQUENIL PO SCH ×3 (05:03→21:29)
[2020-01-21 05:32] LABS: ABG BASE EXCESS 9.9 mmol/L (-2.0-2.0)
[2020-01-21 05:34] LABS: ABG ALLEN TEST POS; ABG HCO3 36.3 mmol/L (22-26)
[2020-01-21 06:03] LABS: BASOPHILS % (AUTO) 0.2 % (0.2-1.0); EOSINOPHILS # (AUTO) 0.2 x10^3/uL (0.0-0.2); EOSINOPHILS % (AUTO) 2.2 % (0.9-2.9); HEMOGLOBIN 13.2 g/dL (13.5-18.0); LYMPHOCYTES # (AUTO) 0.6 X10^3/uL (1.3-2.9); LYMPHOCYTES % (AUTO) 6.9 % (21.0-51.0); MEAN CORPUSCULAR HEMOGLOBIN 31.3 pg (27.0-34.0); MEAN CORPUSCULAR HGB CONC 33.9 g/dL (33.0-35.0); MEAN CORPUSCULAR VOLUME 92.4 fL (80.0-100.0); MEAN PLATELET VOLUME 7.6 fL (7.4-11.0); MONOCYTES # (AUTO) 0.6 x10^3/uL (0.3-0.8); MONOCYTES % (AUTO) 7.2 % (0.0-13.0); NEUTROPHILS % (AUTO) 83.5 % (42.0-75.0); PLATELET COUNT 266 X10^3/uL (150.0-450.0); RED BLOOD COUNT 4.22 X10^6/uL (4.7-6.0); RED CELL DISTRIBUTION WIDTH 14.2 % (11.6-16.5); WHITE BLOOD COUNT 8.4 X10^3/uL (3.6-10.0)
[2020-01-21 06:15] LABS: ALANINE AMINOTRANSFERASE 24 Units/L (12-78); ALBUMIN 1.4 g/dL (3.4-5.0); ALKALINE PHOSPHATASE 54 Units/L (46-116); ASPARTATE AMINO TRANSFERASE 23 Units/L (15-37); BLOOD UREA NITROGEN 42 mg/dL (7-18); CALCIUM 8.9 mg/dL (8.5-10.1); CARBON DIOXIDE 35.4 mmol/L (21-32); CHLORIDE 114 mmol/L (98-107); COR NA(FOR HYPERGLY) 151 mmol/L (136-145); CREATININE 0.84 mg/dL (0.70-1.30); TOTAL PROTEIN 6.5 g/dL (6.4-8.2); eGFR NON BLACK RACES > 60 (>60)
[2020-01-21 06:19] LABS: SODIUM 151 mmol/L (136-145)
[2020-01-21] MEDS ORDERED: GLUCOPHAGE ONE ×2 (07:10→19:31)
[2020-01-21] MEDS: ACTOS PO SCH (08:04)
[2020-01-21] MEDS: ARIMIDEX PO SCH (08:04)
[2020-01-21] MEDS: CORTEF PO SCH ×4 (08:05→20:00)
[2020-01-21] MEDS: GLUCOPHAGE PO SCH ×2 (08:05→20:01)
[2020-01-21] MEDS: LOVENOX INJ 40 MG SYR SC SCH (08:06)
[2020-01-21] MEDS: LACRI-LUBE S.O.P. AFFEYE SCH ×2 (08:06→20:02)
[2020-01-21] MEDS: ROCEPHIN 1 GRAM IV PREMIX 1 G/50 ML IV.SOLN. IV SCH (08:07)
[2020-01-21] MEDS: PROTONIX INJ 40 MG VIAL IVP SCH (08:07)
[2020-01-21] MEDS: VITAMIN A PO SCH (08:08)
[2020-01-21] MEDS: VITAMIN D3 125 mcg (5,000 UNITS) PO SCH (08:09)
[2020-01-21] MEDS: ZINC SULFATE PO SCH ×2 (08:10→20:03)
[2020-01-21] MEDS: VSL#3 PO SCH (08:10)
[2020-01-21] MEDS ORDERED: NS 1/2 1000 ML IV 1,000 ML IV ONE ×2 (09:35→14:13)
--- NOTE | 2020-01-21 09:59 | RAD ---
HISTORYARDS, +COVID-19STUDYCHEST, 1 [id number]/06/2020FINDINGSThe right jugular CVL and endotracheal tube are stable in position. The gastric tube courses below the diaphragm, but the tip is beyond the field of view. Ventilation tubing partially obscures the left lung apex. Accounting for this, there has been no significant interval change in the bilateral interstitial and airspace opacities. No significant pleural effusion or pneumothorax. The cardiac silhouette is stable.IMPRESSIONNo significant change from the prior.Electronically signed by: FRANCISCO CASTRO (Jan 21, 2020 09:57:31)
[2020-01-21] MEDS: NS 1/2 1000 ML IV 1,000 ML IV SCH ×4 (10:38→22:00)
[2020-01-21] MEDS: VERSED 100 MG in NS 100 ML IV 80 ML IV PRN ×2 (10:41→21:56)
[2020-01-21] MEDS: NORVASC TAB 5 MG PO SCH (11:11)
[2020-01-21] MEDS ORDERED: NS IV PRN (16:00)
[2020-01-21] MEDS ORDERED: ZEMURON IV PRN (16:00)
[2020-01-21] MEDS ORDERED: CORTEF ONE (19:46)
[2020-01-21] MEDS: SINGULAIR TAB 10 MG PO SCH (20:01)
[2020-01-21] MEDS: FLOMAX PO SCH (20:02)
[2020-01-22] MEDS: VITAMIN C NG SCH ×4 (03:00→20:14)
[2020-01-22] MEDS: LOPRESSOR INJ 5 MG AMP IVP SCH ×4 (04:19→22:25)
[2020-01-22 04:39] LABS: ABG BASE EXCESS 9.2 mmol/L (-2.0-2.0)
[2020-01-22 04:40] LABS: ABG HCO3 35.9 mmol/L (22-26)
[2020-01-22 04:41] LABS: ABG ALLEN TEST POS; FRACTIONATED INSPIRED OXYGEN 40
[2020-01-22] MEDS ORDERED: NS 1/2 1000 ML IV 1,000 ML IV ONE (05:37)
[2020-01-22] MEDS: PLAQUENIL PO SCH ×3 (05:42→21:09)
[2020-01-22] MEDS: NS 1/2 1000 ML IV 1,000 ML IV SCH ×3 (05:43→20:13)
[2020-01-22 06:07] LABS: BASOPHILS % (AUTO) 0.3 % (0.2-1.0); EOSINOPHILS # (AUTO) 0.2 x10^3/uL (0.0-0.2); EOSINOPHILS % (AUTO) 1.8 % (0.9-2.9); LYMPHOCYTES # (AUTO) 0.8 X10^3/uL (1.3-2.9); LYMPHOCYTES % (AUTO) 8.4 % (21.0-51.0); MEAN CORPUSCULAR HEMOGLOBIN 31.3 pg (27.0-34.0); MEAN CORPUSCULAR HGB CONC 33.3 g/dL (33.0-35.0); MEAN CORPUSCULAR VOLUME 93.9 fL (80.0-100.0); MEAN PLATELET VOLUME 7.7 fL (7.4-11.0); MONOCYTES # (AUTO) 0.6 x10^3/uL (0.3-0.8); MONOCYTES % (AUTO) 6.9 % (0.0-13.0); NEUTROPHILS # (AUTO) 7.7 x10^3/uL (2.2-4.8); NEUTROPHILS % (AUTO) 82.6 % (42.0-75.0); PLATELET COUNT 290 X10^3/uL (150.0-450.0); RED BLOOD COUNT 4.15 X10^6/uL (4.7-6.0); RED CELL DISTRIBUTION WIDTH 14.2 % (11.6-16.5); WHITE BLOOD COUNT 9.4 X10^3/uL (3.6-10.0)
[2020-01-22 06:17] LABS: ALANINE AMINOTRANSFERASE 26 Units/L (12-78); ALBUMIN 1.4 g/dL (3.4-5.0); ALKALINE PHOSPHATASE 44 Units/L (46-116); ASPARTATE AMINO TRANSFERASE 28 Units/L (15-37); BLOOD UREA NITROGEN 42 mg/dL (7-18); CALCIUM 8.7 mg/dL (8.5-10.1); CARBON DIOXIDE 34.9 mmol/L (21-32); CHLORIDE 114 mmol/L (98-107); COR CA(FOR HYPOALB) 10.8 mg/dL (8.5-10.1); CREATININE 0.91 mg/dL (0.70-1.30); TOTAL PROTEIN 6.6 g/dL (6.4-8.2); eGFR NON BLACK RACES > 60 (>60)
[2020-01-22 06:25] LABS: SODIUM 151 mmol/L (136-145)
[2020-01-22] MEDS ORDERED: GLUCOPHAGE ONE ×2 (08:26→20:03)
[2020-01-22] MEDS ORDERED: ZESTRIL TAB 20 MG ONE ×2 (08:27→20:04)
[2020-01-22] MEDS: ZESTRIL TAB 20 MG PO SCH ×2 (08:44→20:13)
[2020-01-22] MEDS: ACTOS PO SCH (08:44)
[2020-01-22] MEDS: ZINC SULFATE PO SCH ×2 (08:44→20:15)
[2020-01-22] MEDS: VSL#3 PO SCH (08:45)
[2020-01-22] MEDS: VITAMIN D3 125 mcg (5,000 UNITS) PO SCH (08:45)
[2020-01-22] MEDS: VITAMIN A PO SCH (08:45)
[2020-01-22] MEDS: ROCEPHIN 1 GRAM IV PREMIX 1 G/50 ML IV.SOLN. IV SCH (08:46)
[2020-01-22] MEDS: PROTONIX INJ 40 MG VIAL IVP SCH (08:46)
[2020-01-22] MEDS: NORVASC TAB 5 MG PO SCH (08:46)
[2020-01-22] MEDS: LOVENOX INJ 40 MG SYR SC SCH (08:47)
[2020-01-22] MEDS: LACRI-LUBE S.O.P. AFFEYE SCH ×2 (08:47→21:07)
[2020-01-22] MEDS: CORTEF PO SCH ×4 (08:48→20:12)
[2020-01-22] MEDS: ARIMIDEX PO SCH (08:48)
[2020-01-22] MEDS: GLUCOPHAGE PO SCH ×3 (08:48→21:10)
[2020-01-22] MEDS: VERSED 100 MG in NS 100 ML IV 80 ML IV PRN (10:01)
[2020-01-22] MEDS: SINGULAIR TAB 10 MG PO SCH (20:12)
[2020-01-22] MEDS: FLOMAX PO SCH (20:13)
[2020-01-23] MEDS: ADRENALINE CHL INJ (ABBOJECT) IVP SCH ×8 (02:04→02:25)
[2020-01-23] MEDS ORDERED: SODIUM BICARBONATE 8.4% INJ ADULT IVP ONE (02:10)
[2020-01-23 03:15] LABS: ALANINE AMINOTRANSFERASE 48 Units/L (12-78); ALBUMIN 1.2 g/dL (3.4-5.0); ALKALINE PHOSPHATASE 67 Units/L (46-116); ASPARTATE AMINO TRANSFERASE 66 Units/L (15-37); BLOOD UREA NITROGEN 44 mg/dL (7-18); CALCIUM 8.5 mg/dL (8.5-10.1); CARBON DIOXIDE 26.1 mmol/L (21-32); CKMB % 0.8 % (<4); COR CA(FOR HYPOALB) 10.7 mg/dL (8.5-10.1); COR NA(FOR HYPERGLY) 157 mmol/L (136-145); CREATINE KINASE 122 Units/L (39-308); CREATINE KINASE MB < 1.0 ng/mL (0-4.0); CREATININE 1.43 mg/dL (0.70-1.30); TOTAL PROTEIN 6.2 g/dL (6.4-8.2); TROPONIN I 0.18 ng/mL (0-1.5); eGFR NON BLACK RACES 52 (>60)
[2020-01-23 03:18] LABS: CHLORIDE 115 mmol/L (98-107); SODIUM 153 mmol/L (136-145)
[2020-01-23 03:35] VITALS: BP 142/65
== END 2020-01-23 05:15 | disposition expired | DRG 177 ==
LOC: MED/SURG → OBSVTOIN 10:54 → ICU 01-16 12:22
PROVIDERS: ADMIT Obstetrics & Gynecology Obstetrics; ATTEND Obstetrics & Gynecology Obstetrics
DX: Z79.899 Other long term (current) drug therapy; E11.65 Type 2 diabetes mellitus with hyperglycemia; U07.1 COVID-19; J80 Acute respiratory distress syndrome; J12.89 Other viral pneumonia